=== PATIENT | male | born 1970 | race Hispanic/Latino ===

== ENCOUNTER 2018-10-04 20:59 | Emergency (ER) | payer SELFPAY ==
--- NOTE | 2018-10-04 21:14 | Event Note ---
ED Screening Note Date of service: 10/04/18 Time: 21:11 ED Screening Note: This is a 48 y.o. M. that presents to the ER with upper abdominal pain x 1 week. Reports worsening pain for several days. Admits to nausea, vomiting, and diarrhea PMH of gastroporesis, COPD, DJD, [place] disease, and PTSD Current smoker This initial assessment/diagnostic orders/clinical plan/treatment(s) is/are subject to change based on patients health status, clinical progression and re- assessment by fellow clinical providers in the ED. Further treatment and workup at subsequent clinical providers discretion. Patient/guardian urged not to elope from the ED as their condition may be serious if not clinically assessed and managed. Initial orders include: Labs and CT of abdomen
[2018-10-04 21:43] LABS: Basophils % (Auto) 0.3 % (0.0-1.8); Eosinophils # (Auto) 0.3 K/mm3 (0.0-0.4); Eosinophils % (Auto) 2.5 % (0.0-4.3); Lymphocytes % (Auto) 31.3 % (13.4-35.0); Mean Corpuscular HGB Conc 36 % (32-34); Mean Corpuscular Volume 96 fl (84-94); Monocytes # (Auto) 0.8 K/mm3 (0.0-0.8); Monocytes % (Auto) 6.4 % (0.0-7.3); Platelet Count 334 K/mm3 (140-440); Red Blood Count 4.45 M/mm3 (3.65-5.03); Red Cell Distribution Width 12.9 % (13.2-15.2)
[2018-10-04 21:46] LABS: Hematocrit 42.8 % (35.5-45.6); Hemoglobin 15.5 gm/dl (11.8-15.2)
[2018-10-04 22:01] LABS: Bacteria,Urine 1+ /HPF (Negative); Bilirubin,Urine NEG (Negative); Blood,Urine NEG (Negative); Color,Urine Amber (Yellow); Mucus,Urine FEW /HPF; Protein,Urine <15 mg/dL mg/dL (Negative)
[2018-10-04 22:05] LABS: Alanine Aminotransferase 39 units/L (7-56); Albumin 4.3 g/dL (3.9-5); BUN/Creatinine Ratio 7; Blood Urea Nitrogen 7 mg/dL (9-20); Calcium 9.2 mg/dL (8.4-10.2); Hemolysis Index 7
[2018-10-04] MEDS ORDERED: PEPCID IV ONE (22:13)
[2018-10-04] MEDS ORDERED: NACL 0.9% 1000 ML 1,000 ML IV ONE (22:13)
[2018-10-04] MEDS ORDERED: MORPHINE IV ONE (22:16)
[2018-10-04] MEDS ORDERED: BENADRYL IV ONE (22:17)
[2018-10-04] MEDS ORDERED: CARAFATE PO ONE (22:17)
[2018-10-04] MEDS ORDERED: ZOFRAN IV ONE (22:18)
[2018-10-04] MEDS ORDERED: DILAUDID IM ONE (23:56)
[2018-10-04] MEDS ORDERED: ZOFRAN ODT PO ONE (23:56)
[2018-10-04] MEDS ORDERED: PEPCID PO ONE (23:56)
[2018-10-05] VITALS: BP 130/80
--- NOTE | 2018-10-05 01:29 | Emergency Department Report ---
ED Abdominal Pain HPI - General Chief Complaint: Abdominal Pain Stated Complaint: ABD PAIN Time Seen by Provider: 10/04/18 21:11 Source: patient Mode of arrival: Ambulatory Limitations: No Limitations - History of Present Illness Initial Comments: Patient is a 48-year-old morbidly obese white male with a history of hypertension, Francisco's disease, GERD, chronic gastroparesis, chronic pain who presents to the ED with acute onset persistent intermittent epigastric pain with nausea and vomiting for the last 2 months. Patient states that the pain gets worse with food but in the last 1 week he has had no appetite completely because of persistent nausea and vomiting and pain. Patient denies fever, chills, chest pain, shortness of breath, dizziness, headache, dysuria, urinary frequency and urgency, diarrhea, hematuria, hematemesis, hematochezia or cough. MD Complaint: abdominal pain (epigastric), other (Nausea and vomiting) -: Gradual, month(s) (2) Location: epigastric Radiation: none Migration to: no migration Severity scale (0 -10): 5 Quality: cramping, aching, sharp, burning Consistency: constant Improves With: nothing Worsens With: eating Associated Symptoms: denies other symptoms, nausea, vomiting, anorexia. denies: diarrhea, fever, chills, constipation, dysuria, hematemesis, hematochezia, melena, hematuria, syncope, other - Related Data Previous Rx's Medication Instructions Recorded Last Taken Type Dicyclomine [Bentyl] 20 mg PO Q6H PRN #30 tablet 10/05/18 Unknown Rx Furosemide [Lasix TAB] 20 mg PO QDAY #30 tablet 10/05/18 Unknown Rx Hydrocortisone (Nf) [Cortef TAB] 15 mg PO Q12H #180 tablet 10/05/18 Unknown Rx Metoclopramide [Reglan] 10 mg PO Q8H PRN #30 tab 10/05/18 Unknown Rx Ropinirole HCl [Requip] 0.5 mg PO QHS #30 tablet 10/05/18 Unknown Rx Sucralfate [Carafate] 1 gm PO Q6HR #30 tablet 10/05/18 Unknown Rx traMADol [Ultram] 50 mg PO Q6HR PRN 3 Days #15 tablet 10/05/18 Unknown Rx Allergies Allergy/AdvReac Type Severity Reaction Status Date / Time acetaminophen [From Percocet] Allergy Hives Verified 10/04/18 21:17 cinnamon Allergy Itching Verified 10/04/18 21:18 codeine Allergy Hives Verified 10/04/18 21:16 egg Allergy Hives Verified 10/04/18 21:18 latex Allergy Hives Verified 10/04/18 21:17 oxycodone [From Percocet] Allergy Hives Verified 10/04/18 21:17 Penicillins Allergy Itching Verified 10/04/18 21:16 Sulfa (Sulfonamide Allergy Hives Verified 10/04/18 21:16 Antibiotics) ED Review of Systems ROS: Stated complaint: ABD PAIN Other details as noted in HPI Constitutional: denies: chills, fever Eyes: denies: eye pain, eye discharge, vision change ENT: denies: ear pain, throat pain Respiratory: denies: cough, shortness of breath, wheezing Cardiovascular: denies: chest pain, palpitations Endocrine: no symptoms reported Gastrointestinal: abdominal pain, nausea, vomiting. denies: diarrhea Genitourinary: denies: urgency, dysuria Musculoskeletal: denies: back pain, joint swelling, arthralgia Skin: denies: rash, lesions Neurological: denies: headache, weakness, paresthesias Psychiatric: denies: anxiety, depression Hematological/Lymphatic: denies: easy bleeding, easy bruising ED Past Medical Hx - Past Medical History Previous Medical History?: Yes Hx Arthritis: Yes Hx Psychiatric Treatment: Yes (PTSD) Hx COPD: Yes Additional medical history: Brooke disease, gastroparesis, ileus, Delayed gastric emptying - Surgical History Past Surgical History?: Yes Hx Cholecystectomy: Yes Hx Appendectomy: Yes Additional Surgical History: Vasectomy, Left wrist - Social History Smoking Status: Current Every Day Smoker Substance Use Type: None - Medications Home Medications: Home Medications Medication Instructions Recorded Confirmed Last Taken Type Dicyclomine [Bentyl] 20 mg PO Q6H PRN #30 tablet 10/05/18 Unknown Rx Furosemide [Lasix TAB] 20 mg PO QDAY #30 tablet 10/05/18 Unknown Rx Hydrocortisone (Nf) [Cortef TAB] 15 mg PO Q12H #180 tablet 10/05/18 Unknown Rx Metoclopramide [Reglan] 10 mg PO Q8H PRN #30 tab 10/05/18 Unknown Rx Ropinirole HCl [Requip] 0.5 mg PO QHS #30 tablet 10/05/18 Unknown Rx Sucralfate [Carafate] 1 gm PO Q6HR #30 tablet 10/05/18 Unknown Rx traMADol [Ultram] 50 mg PO Q6HR PRN 3 Days #15 tablet 10/05/18 Unknown Rx ED Physical Exam - General Limitations: No Limitations General appearance: alert, in no apparent distress - Head Head exam: Present: atraumatic, normocephalic, normal inspection - Eye Eye exam: Present: normal appearance, PERRL, EOMI Pupils: Present: normal accommodation - ENT ENT exam: Present: normal exam, normal orophraynx, mucous membranes moist, TM's normal bilaterally, normal external ear exam - Neck Neck exam: Present: normal inspection, full ROM - Respiratory Respiratory exam: Present: normal lung sounds bilaterally. Absent: respiratory distress, wheezes, rales, rhonchi, stridor, chest wall tenderness, accessory muscle use, decreased breath sounds, prolonged expiratory - Cardiovascular Cardiovascular Exam: Present: regular rate, normal rhythm, normal heart sounds. Absent: systolic murmur, diastolic murmur, rubs, gallop - GI/Abdominal GI/Abdominal exam: Present: soft, tenderness (epigastric area), normal bowel sounds. Absent: guarding - Rectal Rectal exam: Present: deferred - Extremities Exam Extremities exam: Present: normal inspection, full ROM, normal capillary refill - Back Exam Back exam: Present: normal inspection, full ROM. Absent: tenderness, CVA tenderness (R), CVA tenderness (L), muscle spasm, paraspinal tenderness, vertebral tenderness - Neurological Exam Neurological exam: Present: alert, oriented X3, CN II-XII intact, normal gait, reflexes normal - Psychiatric Psychiatric exam: Present: normal affect, normal mood - Skin Skin exam: Present: warm, dry, intact, normal color. Absent: rash ED Course Vital Signs 10/04/18 10/05/18 23:58 00:17 Pulse Rate 84 Respiratory 18 16 Rate Blood Pressure 130/80 [Right] O2 Sat by Pulse 96 Oximetry - Reevaluation(s) Reevaluation #1: 10/05/18 01:36 This is a 48-year-old white male who presented to the ED with epigastric pain, nausea and vomiting. In the ED, patient's alert and oriented 3 and is not in distress but appears to be in pain, other vital signs are unremarkably stable. Lab test results were reviewed and shows leukocytosis of 12,800. The rest of the lab test results are nonactionable. Patient was treated for pain in the ED and also treated for nausea and vomiting and also treated with antacids. On reevaluation, patient's pain is well-controlled with medications, patient has not had any nausea or vomiting episodes in the ED. Patient was discharged home on medications and some of his medications were refilled for him in the ED. Vision was advised to follow-up with his primary care physician at [facility] in 5-7 days for reevaluation or return to the ED immediately if symptoms get worse. ED Medical Decision Making - Lab Data Result diagrams: 10/04/18 21:24 10/04/18 21:24 - Medical Decision Making This is a 48-year-old white male who presented to the ED with epigastric pain, nausea and vomiting. In the ED, patient's alert and oriented 3 and is not in distress but appears to be in pain, other vital signs are unremarkably stable. Lab test results were reviewed and shows leukocytosis of 12,800. The rest of the lab test results are nonactionable. Patient was treated for pain in the ED and also treated for nausea and vomiting and also treated with antacids. On reevaluation, patient's pain is well-controlled with medications, patient has not had any nausea or vomiting episodes in the ED. Patient was discharged home on medications and some of his medications were refilled for him in the ED. Vision was advised to follow-up with his primary care physician at [facility] in 5-7 days for reevaluation or return to the ED immediately if symptoms get worse. - Differential Diagnosis Chronic epigastric pain; GERD; Nausea and vomiting Critical care attestation.: If time is entered above; I have spent that time in minutes in the direct care of this critically ill patient, excluding procedure time. ED Disposition Clinical Impression: Abdominal pain, epigastric, Nausea and vomiting in adult Disposition: DC-01 TO HOME OR SELFCARE Is pt being admited?: No Does the pt Need Aspirin: No Condition: Stable Instructions: Abdominal Pain (ED), Acute Nausea and Vomiting (ED) Additional Instructions: Take medications with food, drinking binge of fluids and follow up with your primary care physician in 7-10 days for reevaluation. Return to the ED immediately if symptoms get worse. Prescriptions: Ropinirole HCl [Requip] 0.5 mg PO QHS #30 tablet Dicyclomine [Bentyl] 20 mg PO Q6H PRN #30 tablet PRN Reason: Pain , Severe (7-10) Sucralfate [Carafate] 1 gm PO Q6HR #30 tablet Hydrocortisone (Nf) [Cortef TAB] 15 mg PO Q12H #180 tablet Furosemide [Lasix TAB] 20 mg PO QDAY #30 tablet Metoclopramide [Reglan] 10 mg PO Q8H PRN #30 tab PRN Reason: Nausea traMADol [Ultram] 50 mg PO Q6HR PRN 3 Days #15 tablet PRN Reason: Pain Referrals: [facility] [Outside] - 3-5 Days Forms: Accompanied Note Time of Disposition: 01:22 Print Language: [id number]
== END 2018-10-05 01:45 | disposition home or self-care (01) ==
LOC: ED 20:59
DX: R10.13 Epigastric pain (principal); R11.2 Nausea with vomiting, unspecified; F17.200 Nicotine dependence, unspecified, uncomplicated; M19.90 Unspecified osteoarthritis, unspecified site; F43.10 Post-traumatic stress disorder, unspecified; J44.9 Chronic obstructive pulmonary disease, unspecified; Z98.890 Other specified postprocedural states; Z90.89 Acquired absence of other organs; Z90.49 Acquired absence of other specified parts of digestive tract; Z88.6 Allergy status to analgesic agent; Z88.8 Allergy status to other drugs, medicaments and biological substances; Z88.5 Allergy status to narcotic agent; Z91.012 Allergy to eggs; Z91.040 Latex allergy status
CPT/HCPCS: 36415; 80053; 81001; 83690; 85025; J1170; 96372; Q0162